=== PATIENT | male | born 1960 | race Caucasian/White ===

== ENCOUNTER 2022-10-02 18:34 | Emergency (ER) | payer OTHER ==
[~2022-10-02] VITALS: Ht 172.7 cm; Wt 79.8 kg
[2022-10-02] MEDS ORDERED: ZESTRIL40 MG PO (18:39)
[2022-10-02] MEDS ORDERED: LEVOTHYROXINE13 MCG PO (18:39)
[2022-10-02] MEDS ORDERED: METFORMIN HCL1000 M1 PO (18:39)
[2022-10-02] MEDS ORDERED: COREG25 MG PO (18:41)
[2022-10-02] MEDS ORDERED: LEVOTHYROXINE150 MC1 PO (18:42)
[2022-10-02] MEDS ORDERED: CYMBALTA30 MG PO (18:42)
[2022-10-02] MEDS ORDERED: AMITRIPTYLINE H50 MG PO (18:43)
[2022-10-02] MEDS ORDERED: SERTRALINE HCL100 MG PO (18:43)
[2022-10-02] MEDS ORDERED: NORVASC10 MG PO (18:44)
[2022-10-02] MEDS ORDERED: HYDROXYZINE HCL50 MG PO (18:44)
[2022-10-02] MEDS ORDERED: VAZALORE81 MG PO (18:44)
[2022-10-02] MEDS ORDERED: HYDROCODON-ACE1 EA10 PO (21:23)
== END 2022-10-02 21:40 | disposition home or self-care (01) ==
LOC: ED 18:34
DX: S32.435A Nondisplaced fracture of anterior column [iliopubic] of left acetabulum, initial encounter for closed fracture (principal); W18.30XA Fall on same level, unspecified, initial encounter; I10 Essential (primary) hypertension; E11.9 Type 2 diabetes mellitus without complications; Z79.84 Long term (current) use of oral hypoglycemic drugs; Z79.899 Other long term (current) drug therapy; Z79.82 Long term (current) use of aspirin
CPT/HCPCS: 73502; 73700; 99284-25